=== PATIENT | female | born 1955 ===

== ENCOUNTER 2017-03-08 13:14 | Outpatient (CLI) | payer OTHER ==
--- NOTE | 2017-03-08 18:29 | MRI ---
CERVICAL SPINE MRI WITHOUT IV CONTRAST 03/08/17 HISTORY: Spondylosis with radiculopathy. Neck pain radiating down the left shoulder. Multiplanar and multisequence MRI examination of the cervical spine is performed. C2-C3 disc is unremarkable. At C3-C4, small disc osteophytosis changes are noted with very mild indention of the ventral thecal s ac without significant canal, lateral recess or foraminal stenosis. At C4-C5, There is some disc osteophytic changes with mild indention of the ventral thecal sac and so me mild to moderate right lateral recess stenosis and moderate to severe right foraminal stenosis. At C5-C6, C6-C7, and C7-T1, there is no focal herniation or significant canal or foraminal stenosis. There is some motion artifact which somewhat lowers the sensitivity of this study. No spinal cord mas s or overt spinal cord compression. IMPRESSION: Disc osteophytic changes at C4-C5 with some mild right ventral lateral recess stenosis and moderate t o severe right foraminal stenosis. Mild disc osteophytic changes at C3-C4 without significant associa sulma stenosis. No abnormal marrow signal. No spinal cord mass or overt spinal cord compression. POS: [place]
--- NOTE | 2017-03-08 18:40 | MRI ---
LEFT SHOULDER MRI WITHOUT IV CONTRAST 03/08/17 HISTORY: 61-year-old female with neck pain radiating down the left shoulder. Multiplanar and multisequence MRI examination of the left shoulder is performed. There are some AC lenora int arthrosis changes with some downsloping of the lateral acromion as well as some moderate fluid wi thin the subacromial subdeltoid bursa. There is irregular abnormal signal involving the anterior supr aspinatus tendon consistent with a nonretracted irregular possibly somewhat oblique full thickness te ar. There is minimal associated anterior fluid density or edema just anterior to the supraspinatus te ndon. The infraspinatus tendon, subscapularis tendon, and biceps tendons appear intact. There is cons iderable motion artifact on numerous sequences which does considerably lower the sensitivity of this study. There is evidence for a SLAP tear extending anteriorly and posteriorly. Rotator cuff muscles a re within normal limits of signal and volume. IMPRESSION: AC joint arthrosis with some fluid in the subacrominal subdeltoid bursa. Irregular full thickness, no nretracted tear of the supraspinatus tendon anteriorly. Evidence for SLAP tear. POS: [facility]
== END 2017-03-08 13:15 | disposition home or self-care (01) ==
LOC: SCSMRI 13:14
PROVIDERS: ATTEND Internal Medicine Rheumatology
DX: M75.112 Incomplete rotator cuff tear or rupture of left shoulder, not specified as traumatic (principal); M47.22 Other spondylosis with radiculopathy, cervical region; S43.402A Unspecified sprain of left shoulder joint, initial encounter; M48.02 Spinal stenosis, cervical region; M99.41 Connective tissue stenosis of neural canal of cervical region
CPT/HCPCS: 72141